=== PATIENT | female | born 1980 | race Caucasian/White ===

== ENCOUNTER → 2017-11-23 | Outpatient (CLI) | payer OTHER ==
[~2017-11-23] MED LIST: DOCU50CA6 PO; MIRALAX PO; MULT-658 PO; NORG1TAB26 PO; POLY17PO5 PO; PREN1TAB52 PO
[2017-11-23 09:21] LABS: MICROSCOPIC NOT IND
[2017-11-23 09:24] LABS: CULTURE INDICATED? NO
== END | disposition home or self-care (01) ==
LOC: STAR 08:23
PROVIDERS: ATTEND Obstetrics & Gynecology
DX: Z01.818 Encounter for other preprocedural examination (principal); R87.613 High grade squamous intraepithelial lesion on cytologic smear of cervix (HGSIL); F41.9 Anxiety disorder, unspecified
CPT/HCPCS: 81003; 81025

== ENCOUNTER 2017-11-30 07:05 | Day surgery (SDC) | payer OTHER ==
[~2017-11-30] VITALS: Ht 157.5 cm; Wt 51.3 kg
[2017-11-30] MEDS ORDERED: LACTATED RINGERS 1,000 ML IV SCH (07:17)
[2017-11-30] MEDS ORDERED: BUPIVACAINE/PF-EPI 0.5% 1:200K ONE ×2 (07:24→10:45)
[2017-11-30] MEDS ORDERED: SILVER NITRATE STICK TP ONE (07:25)
[2017-11-30] MEDS ORDERED: ACETAMINOPHEN 500 MG TABLET PO ONE (07:30)
[2017-11-30] MEDS ORDERED: SCOPOLAMINE PATCH, 1.5MG PATCH.TD72 TD ONE (07:40)
[2017-11-30] MEDS ORDERED: MIDAZOLAM 1 MG/ML, 2ML ONE (07:47)
[2017-11-30] MEDS ORDERED: FENTANYL PF 100 MCG/2ML ONE ×2 (07:47→08:39)
[2017-11-30 07:49] LABS: HCG UR SG 1.006 (1.003-1.030)
[2017-11-30] MEDS ORDERED: ONDANSETRON 2MG/ML, 2ML ONE (07:49)
[2017-11-30] MEDS ORDERED: PROPOFOL 10 MG/ML, 50ML ONE (07:49)
[2017-11-30] MEDS ORDERED: DEXAMETHASONE 4 MG/ML, 1ML ONE (07:49)
[2017-11-30] MEDS ORDERED: CEFAZOLIN 1,000 MG ONE (07:49)
[2017-11-30] MEDS ORDERED: LIDOCAINE-MPF 2% ,5ML ONE (07:49)
[2017-11-30] MEDS ORDERED: PROPOFOL 10 MG/ML, 20ML ONE (07:49)
[2017-11-30] MEDS ORDERED: ACETAMINOPHEN 325 MG TABLET PO PRN ×2 (08:30→09:00)
[2017-11-30] MEDS ORDERED: MEPERIDINE/PF 25MG/0.5ML IVPush PRN (08:30)
[2017-11-30] MEDS ORDERED: hydrALAzine 20 MG/ML, 1ML IV PRN ×2 (08:30→09:00)
[2017-11-30] MEDS ORDERED: LABETALOL 5MG/ML, 20ML IV PRN ×2 (08:30→09:00)
[2017-11-30] MEDS ORDERED: LORazepam 2 MG/ML, 1ML IVPush PRN ×2 (08:30→09:00)
[2017-11-30] MEDS ORDERED: PROMETHAZINE 25 MG/ML, 1ML IV PRN ×2 (08:30→09:00)
[2017-11-30] MEDS ORDERED: ALBUTEROL SULFATE 2.5 MG/3 ML NPPB PRN ×2 (08:30→09:00)
[2017-11-30] MEDS ORDERED: OXYcodone 5 MG/5 ML ORAL.SOL UDC ONE (08:39)
[2017-11-30] MEDS: FENTANYL PF 100 MCG/2ML IV PRN ×3 (08:45→08:55)
[2017-11-30] MEDS: OXYcodone 5 MG/5 ML ORAL.SOL UDC PO PRN ×2 (08:52→09:10)
[2017-11-30] MEDS ORDERED: HYDROmorphone 1 MG/ML, 1ML IV PRN (09:00)
[2017-11-30] MEDS ORDERED: FENTANYL PF 100 MCG/2ML IV PRN (09:00)
[2017-11-30] MEDS ORDERED: OXYcodone 5 MG/5 ML ORAL.SOL UDC PO PRN (09:00)
[2017-11-30] MEDS ORDERED: KETOROLAC 30 MG/1 ML IV PRN (09:00)
[2017-11-30] MEDS ORDERED: MEPERIDINE/PF 50 MG/ML ONE (09:23)
== END 2017-11-30 12:05 | disposition home or self-care (01) ==
LOC: OUT 07:05
PROVIDERS: ATTEND Obstetrics & Gynecology
DX: N87.1 Moderate cervical dysplasia (principal); D64.9 Anemia, unspecified; Z98.890 Other specified postprocedural states; Z90.721 Acquired absence of ovaries, unilateral
CPT/HCPCS: 57460; 81025; 88305; 88307; J0690; J1100; J1885; J2175; J2250; J2405; J2704; J3010; J3490